=== PATIENT | male | born 1995 | race Hispanic/Latino ===

== ENCOUNTER 2019-01-16 18:54 | Emergency (ER) | payer OTHER, SELFPAY ==
[2019-01-16 19:07] VITALS: BP 125/71; PULSE 94; RESP 15; TEMP 36; O2SAT 99; BMI 31.3
--- NOTE | 2019-01-16 19:10 | DI.RAD.S_ITS ---
PROCEDURE: XR KNEE RT 3V INDICATIONS: knee pain TECHNIQUE: 3 views of the knee were acquired. COMPARISON: None. FINDINGS: Bones: No fractures or dislocations. No suspicious bony lesions. Soft tissues: No joint effusion. No suspicious soft tissue calcifications. IMPRESSION: No acute osseous abnormality. Dictated by: Victor Hugo Bazzi M.D. on 01/16/2019 at 19:56 Approved by: Victor Hugo Bazzi M.D. on 01/16/2019 at 19:57
[2019-01-16 20:02] VITALS: BP 130/88; PULSE 89; RESP 18; O2SAT 97
--- NOTE | 2019-01-16 22:31 | ED.EXTPRO ---
HPI - Extremity Problem General Chief complaint: Extremity Problem,Nontraumatic Stated complaint: right knee swelling and pain Time Seen by Provider: 01/16/19 19:37 Source: patient Mode of arrival: Ambulatory Limitations: no limitations History of Present Illness HPI Narrative: 23-year-old male nonsmoker with benign medical history presents at the request of his supervising officers for evaluation of a right painful knee. They did a 10 mi run today with his arm group, while caring a 35 lb ruck sack. An hours after the run the patient develops ongoing and increasing pain with some swelling. His pain is worse with motion and improves with rest. He denies any injury such as direct impact or twisting. He denies any history of knee injury. Denies numbness, tingling or weakness. He is otherwise well and free of complaint. He denies any systemic findings such as fever, chills nor nausea or vomiting MD Complaint: extremity pain and extremity swelling Onset (ago): hour(s) Pain Consistency: constant Location: right Quality: aching Radiation: none Relieving factors: rest Exacerbating factors: range of motion, weight bearing and walking Associated symptoms: denies other symptoms Related Data Allergies Allergy/AdvReac Type Severity Reaction Status Date / Time No Known Drug Allergies Allergy Verified 01/16/19 19:07 Review of Systems Constitutional Constitutional: Denies chills, Denies fatigue, Denies fever(s), Denies frequent falls, Denies lethargy and Denies weakness Eyes Eyes: Denies change in vision, Denies eye discharge, Denies irritation and Denies loss of vision ENT Ears, Nose, Mouth, and Throat: Denies change in voice, Denies dizziness, Denies neck pain, Denies sore throat and Denies throat swelling Cardiovascular Cardiovascular: Denies chest pain, Denies irregular heart rhythm, Denies lightheadedness, Denies palpitations, Denies dyspnea, Denies dyspnea on exertion and Denies orthopnea Respiratory Respiratory: Denies cough, Denies dyspnea, Denies dyspnea on exertion and Denies wheezing Gastrointestinal Gastrointestinal: Denies abdominal pain, Denies change in bowel habits, Denies diarrhea, Denies nausea and Denies vomiting Genitourinary Genitourinary: Denies hematuria, Denies flank pain, Denies urinary incontinence and Denies urinary urgency Musculoskeletal Musculoskeletal: Denies back pain, Reports joint swelling, Reports limited range of motion, Denies muscle weakness, Denies neck pain, Denies numbness and Denies tingling Integumentary/Breasts Skin/Breast: Denies pruritus, Denies erythema, Denies rash and Denies wounds Neurologic Neurologic: Denies behavioral changes, Denies confusion, Denies dizziness, Denies frequent falls, Denies loss of vision, Denies numbness, Denies tingling and Denies weakness Psychiatric Psychiatric: Denies anxiety, Denies behavioral changes, Denies confusion, Denies depression, Denies homicidal ideation and Denies suicidal ideation Endocrine Endocrine: Denies fatigue, Denies flushing and Denies palpitations Hematologic/Lymphatic Hematologic/Lymphatic: Denies easy bruising Allergic/Immunologic Allergic/Immunologic: Denies urticaria, Denies throat swelling and Denies wheezing Patient History Social History Smoking Status: Current every day smoker Social History Smoking Status: Current every day smoker tobacco type: vaping alcohol intake frequency: holidays/special occasions only Substance Use Type: does not use Exam Narrative Exam Narrative: GEN: AOx3 and in mild distress EYES: Pupils are equal, round, and reactive to light and accommodation. Extraoccular muscles are intact bilaterally. There is no subconjunctival hemorrhage or exudate. CHEST: Lungs are clear to auscultation bilaterally and free of wheezes, rales, or rhonchi. Heart rate is regular rhythm, there are no murmurs, clicks, rubs, or gallops. There is no chest wall tenderness. ABD: Abdomen is soft and nontender. There is no guarding or rebound. Bowel sounds are normal in all 4 quadrants. There is no mass or organomegaly. EXT: Full but painful range of motion of the right knee. Very minimal edema, no warmth or redness. No ligamentous laxity. No pain elicited with Messi's SKIN: Warm, pink, and dry. No erythema or rash Initial Vital Signs Initial Vital Signs: Vital Signs Temperature 96.8 F L 01/16/19 19:07 Pulse Rate 94 H 01/16/19 19:07 Respiratory Rate 15 01/16/19 19:07 Blood Pressure 125/71 01/16/19 19:07 Pulse Oximetry 99 01/16/19 19:07 Course Orders Ordered: ED Orders 01/16/19 19:10 XR knee RT 3V Stat Vital Signs Vital signs: Vital Signs - 8 hr 01/16/19 19:07 01/16/19 20:02 Temperature 96.8 F L Pulse Rate 94 H 89 Respiratory Rate 15 18 Blood Pressure 125/71 Blood Pressure [Left Arm] 130/88 Pulse Oximetry 99 97 MDM - Extremity (Nontraumatic) Imaging Data Knee Xray: Radiologist's impression: [address] [address] XRay Report Signed [id number] : 1995Acct:[id number] Age/Sex: 23 / MDate of Service: 01/16/19 Loc: ED Accession Number: [id number] Procedure: XR knee RT 3V Ordering Provider: Luther Martin D.O. PROCEDURE: XR KNEE RT 3V INDICATIONS: knee pain TECHNIQUE: 3 views of the knee were acquired. COMPARISON: None. FINDINGS: Bones: No fractures or dislocations. No suspicious bony lesions. Soft tissues: No joint effusion. No suspicious soft tissue calcifications. IMPRESSION: No acute osseous abnormality. Dictated by: Victor Hugo Bazzi M.D. on 01/16/2019 at 19:56 Approved by: Victor Hugo Bazzi M.D. on 01/16/2019 at 19:57 Discharge Plan Departure Patient Disposition: Home Clinical Impression: Acute pain of right knee Discharge Date/Time: 01/16/19 20:11 Instructions: DI for Knee Pain Activity Restrictions/Additional Instructions: *You have been diagnosed with [Right knee pain, due to overuse ] *What to do: *Take medications as directed *Follow up with your primary care provider in 2-3 days, call for an appointment. Let them know you were seen in the Emergency Department and that we ask that you be seen in follow up *Return to ER if you should have any new, worsening or concerning symptoms
== END 2019-01-16 20:11 | disposition home or self-care (01) ==
PROVIDERS: Emergency Provider Emergency Medicine
DX: M25.561 Pain in right knee (principal)
CPT/HCPCS: 73562; 99282; 99283